=== PATIENT | female | born 1965 | race Caucasian/White ===

== ENCOUNTER 2018-07-05 16:04 | Observation (INO) | payer BC ==
[2018-07-05] VITALS (9 sets, daily range): BP systolic 103–122; BP diastolic 62–76; PULSE 45–88; TEMP 97.9–9802
[2018-07-05] MEDS ORDERED: NEURONTIN100 MG/CAP PO (20:04)
[2018-07-06] VITALS: BP 94/53; PULSE 80; TEMP 98.2
[2018-07-06 05:19] VITALS: BP 96/43; PULSE 49; TEMP 98.1
[2018-07-06 08:12] VITALS: BP 116/65; PULSE 58; TEMP 97.7
[2018-07-06 12:49] VITALS: BP 109/74; PULSE 62; TEMP 97.9
[2018-07-06 15:50] VITALS: BP 103/71; PULSE 59; TEMP 98.6
== END 2018-07-06 17:45 | disposition home or self-care (01) ==
LOC: SURG 16:04
DX: K41.30 Unilateral femoral hernia, with obstruction, without gangrene, not specified as recurrent (principal); Z90.710 Acquired absence of both cervix and uterus; K21.9 Gastro-esophageal reflux disease without esophagitis; Z87.442 Personal history of urinary calculi
CPT/HCPCS: C1781; J0690; J1100; J1885; J2405; J2704; J3010; J7042